=== PATIENT | male | born 1925 | race Caucasian/White ===

== ENCOUNTER 2016-11-08 16:34 | Emergency (ER) | payer MEDICARE, OTHER ==
[~2016-11-08] VITALS: Ht 180.3 cm; Wt 77.3 kg
[2016-11-08 16:48] VITALS: BP 141/70; PULSE 71; RESP 19; O2SAT 98
--- NOTE | 2016-11-08 16:49 | ED.REPORT ---
HPI-Chest Pain 40 and Over Date of Service Nov 08, 2016 ED Provider: Vel Alicia DO The patient is a 89 year old male w/ a hx of 2 bypasses who presents to the ED due to sudden onset atypical chest sensation. Pt specifically denies "chest pain " and describes that he just "feels bad all over." He went to the dentist last week and had a slightly elevated blood pressure. C/o warmth on his head. He was sitting when he began to experience symptoms. His confirms that his speech is normal and denies LOC, dizziness and any other symptoms. The pt requested go to the ER which he has never done before. He does not take medication for high blood pressure. He never had any chest pain. He never had any shortness of breath. Basically was a feeling of dysphoria. Perhaps presyncopal as well. Nursing Notes Stated Complaint: CHEST PAIN Chief Complaint: Chest Pain Nursing Notes Reviewed: Yes Allergies: Coded Allergies: No Known Allergies (Unverified , 11/08/16) General Time Seen by MD: 16:48 Chief Complaint Chest aching Hx Obtained From: Patient Arrived By: Walk-in Sudden in Onset?: Yes Onset Occurred: Just prior to arrival Symptom Duration: Since onset Past Medical History Past Medical History denies Past Surgical History 2 bypasses Smoking History Never Smoker Social History Other Social History: Good social support, , Local resident Review of Systems Review of Systems Note: atypical chest sensation Constitutional: Reports: Malaise Cardiovascular: Denies: Chest pain Neurologic: Denies: Change LOC, Dizziness Complete sys rev & neg: except as marked. Physical Exam Initial Vital Signs Vital Signs (First) Date Time Temp Pulse Resp B/P Pulse Ox O2 Delivery O2 Flow Rate FiO2 11/08/16 16:48 36.8 71 19 141/70 98 Room Air Initial VS: Reviewed Head / Eyes: Atraumatic, Normocephalic, PERRL ENT: Mucous membranes moist Skin: Warm, Dry General/Constitutional: Awake, Alert, No acute distress, Well appearing, Cooperative, Not toxic appearing moving all 4 extremities Respiratory / Chest: Atraumatic, Breath sounds NL, Breath sounds = bilat Cardiovascular: Heart rate NL, Regular rhythm, Heart sounds NL pitting edema bilateral LE Abdomen: Atraumatic, Soft, Non-tender Lower Extremity / Pelvis / MS: Inspection NL, Full range of motion skin graft on right knee healing well Neurologic: Oriented X3, Speech NL, No motor deficits, No sensory deficits, Reflexes equal bilat, Memory NL Interpretation & Diagnostics Interpretation & Diagnostics: ANGIOGRAPHY CT IMPRESSION: 1. No evidence of pulmonary embolism. 2. No consolidations or effusions. 3. Multiple sub-centimeters nodules with the largest measuring 5 mm. No priors are available for comparison. Recommend interval followup as below. 4. Multiple low attenuation hepatic foci, with the largest most consistent with simple cysts. The smaller are too small to definitively characterize. Fleischner Society criteria for lung nodule followup. Nodule size (mm)Low-risk patientHigh-risk patient<=4No follow-up needed.Follow-up at 12 months; if no change, no further follow-up.>7-1Infvsy-ws CT at 12 months; if no change, no further follow-up needed.Initial follow-up CT at 6-12 months, then 18-24 months if no change.>6-8Initial follow-up CT at 6-12 months, then 18-24 months if no change.Initial follow-up CT at 3-6 months, then 9-12 months and 24 months if no change.>8Follow-up CT at 3,9 and 24 months or PET and/or biopsySame as for low-risk patientsNon-solid (ground-glass) or partly solid nodules may require longer follow-up to exclude indolent adenocarcinoma. Dictated by: Raven Salmeron M.D. on 11/08/2016 at 19:40 Approved by: Raven Salmeron M.D. on 11/08/2016 at 19:46 Lab Results Interpretation Result Diagram: 11/08/16 1700 11/08/16 1700 Test 11/08/16 17:00 11/08/16 18:30 11/08/16 20:25 White Blood Count 5.6th/mm3 (3.8-10.1) Red Blood Count 4.22mil/mm3 (4.40-5.80) Hemoglobin 14.4g/dL (13.8-17.2) Hematocrit 41.4% (41.0-50.0) Mean Corpuscular Volume 98.1fL (81-100) Mean Corpuscular Hemoglobin 34.1pg (27.0-35.0) Mean Corpuscular Hemoglobin Concent 34.8% (32.0-37.0) Red Cell Distribution Width 13.2% (12.3-15.4) Platelet Count 115bil/L (150-400) Neutrophils (%) (Auto) 64.8% (40-74) Lymphocytes (%) (Auto) 17.5% (14-46) Monocytes (%) (Auto) 13.5% (4-12) Eosinophils (%) (Auto) 4.0% (0-5) Basophils (%) (Auto) 0.2% (0-3) D-Dimer 0.70mg/L FEU (<0.50) Sodium Level 137mEq/L (134-144) Potassium Level 4.4mEq/L (3.5-5.2) Chloride Level 99mEq/L (97-108) Carbon Dioxide Level 25mmol/L (18-29) Blood Urea Nitrogen 20mg/dL (8-27) Creatinine 0.78mg/dL (0.76-1.27) Estimat Glomerular Filtration Rate 100mL/min (>59) Glucose Level 111mg/dL (60-99) Calcium Level 9.8mg/dL (8.5-10.1) Magnesium Level 2.1mg/dL (1.6-2.6) Total Bilirubin 0.7mg/dL (0.0-1.2) Aspartate Amino Transf (AST/SGOT) 29U/L (0-50) Alanine Aminotransferase (ALT/SGPT) 24U/L (0-44) Alkaline Phosphatase 89U/L (25-160) Pro-B-Type Natriuretic Peptide 287.3pg/mL (0-486) Total Protein 7.1g/dL (6.4-8.4) Albumin 4.2g/dL (3.4-5.0) Urine Color Yellow (YELLOW) Urine Appearance Hazy (CLEAR,HAZY) Urine pH 8.0 (5.0-8.0) Urine Specific [place] 1.015 (1.003-1.035) Urine Protein Negativemg/dL (NEG,TRACE) Urine Glucose (UA) Negativemg/dL (NEGATIVE) Urine Ketones Negativemg/dL (NEGATIVE) Urine Occult Blood Negative (NEGATIVE) Urine Nitrite Negative (NEGATIVE) Urine Bilirubin Negative (NEGATIVE) Urine Urobilinogen Normalmg/dL (NORMAL) Urine Leukocyte Esterase Negative (NEGATIVE) Urine RBC 0-2/hpf (0-2) Urine WBC 0-5/hpf (0-5) Urine Epithelial Cells Occasional/hpf (NONE-MOD) Urine Crystals Amorphous phosphates Urine Bacteria None/hpf (NONE-FEW) Urine Hyaline Casts None/lpf (NONE) Urine Granular Casts None seen (NONE SEEN) Urine Waxy Casts None seen (NONE SEEN) Urine Red Blood Cell Casts None seen (NONE SEEN) Urine White Blood Cell Casts None seen (NONE SEEN) Urine Mucus None seen (None Seen) Urine Trichomonas None seen (NONE SEEN) Urine Yeast None (NONE SEEN) Urinalysis Comment None Troponin T 0.010ug/L (0.0-0.011) ECG Interpretation ECG Interpretation: RBBB prolonged [place] interval Time: 16:55 Interpreted by: ED physician Normal ECG Interpretation: Normal sinus rhythm (7) X-Ray Chest Interpretation Chest Xray Interpretation: IMPRESSION: Very minimal streaky bibasilar opacities, suspected to represent atelectasis. However, developing airspace disease such as pneumonia cannot be definitively excluded. Dictated by: Raven Salmeron M.D. on 11/08/2016 at 17:31 Approved by: Raven Salmeron M.D. on 11/08/2016 at 17:32 View: Portable Interpretation / Wet Read by: Interpret - Radiologist Re-Eval/Medical Decision Med Decision/Clinical Course Mr. Osorio has had a very reassuring workup. Pulmonary emboli has been ruled out. Serial cardiac enzymes are normal. His EKG shows a right bundle with normal ST segments. His laboratory work otherwise looks good. He was observed for roughly 4 hours. He was essentially asymptomatic and felt like he wanted to go home. I am not exactly sure what happened tonight. I am happy that he is not having an LA or pulmonary embolism. I think is perfectly safe for him to be at home and have close outpatient follow-up. I will have him call his doctor and finish photographer on Wednesday to set up follow-up as well. Time of Eval: 17:29 Re-Evaluation/Progress Note: Plan for bloodwork, chest x-ray and electolytes. Pt understands and agrees with plan. Counseled Regarding: Diagnosis, Lab results, Need for follow-up, When/why to return to ED Discharge & Departure Primary Impression: Near syncope Disposition: Home Discharge Condition All VS Reviewed: Yes Condition: Stable Patient Instructions: Chest Pain (ED), Syncope (GEN) Additional Instructions: I am not certain as to exactly what happened tonight. Your EKG does not show signs of heart injury. Your cardiac enzymes were normal. No blood clot was identified on the CAT scan. Your laboratory work was reassuring and normal. Your chest x-ray was reassuring as well. Your vital signs have been normal. I am glad you're feeling better. I would like you to call your doctor tomorrow to set up a follow-up for this week. Return to the emergency department if you have any problems or any new or worrisome symptoms. I would also like you to call your finish photographer for a follow-up as well. The CAT scan of the chest did show pulmonary nodules. Take a copy of the CAT scan report with you when you follow-up and make sure this stuff is all followed up on. Referrals: Patricio Bai MD (PCP) Shane Parham MD Attestation Portion of this note were transcribed by Luz Haider. I, Dr. Alicia, personally performed the history, physical exam, and medical decision-making: I reviewed and confirmed the accuracy for the information in the transcribed note. Signed by: shana Hair, 11/08/16 2200 copies to: Shane Parham MD, Todd P DO Nov 08, 2016 16:49 Luz Haider Nov 08, 2016 17:24
[2016-11-08 17:20] LABS: BASOPHILS % (AUTO) 0.2 % (0-3); MONOCYTES % (AUTO) 13.5 % (4-12); Mean Corpuscular Hemoglobin 34.1 pg (27.0-35.0); Mean Corpuscular Volume 98.1 fL (81-100); NEUTROPHILS % (AUTO) 64.8 % (40-74); Platelet Count 115 bil/L (150-400)
--- NOTE | 2016-11-08 17:33 | DRSVH ---
PROCEDURE: X-RAY CHEST ONE VIEW, PORTABLE ([id number]) INDICATIONS: CHEST PAIN TECHNIQUE: One view of the chest was acquired. COMPARISON: [facility], CR, CHEST 2VW, 12/04/2014, 11:22. None. FINDINGS: Surgical changes and devices: Sternal wires consistent with previous bypass procedure are noted. Lungs and pleura: Very minimal appearance of streaky bibasilar opacities. Mediastinum: Mediastinal contours appear normal. Heart size is normal. Bones and chest wall: No suspicious bony lesions. Overlying soft tissues appear unremarkable. IMPRESSION: Very minimal streaky bibasilar opacities, suspected to represent atelectasis. However, de veloping airspace disease such as pneumonia cannot be definitively excluded. Dictated by: Raven Salmeron M.D. on 11/08/2016 at 17:31 Approved by: Raven Salmeron M.D. on 11/08/2016 at 17:32
[2016-11-08 17:46] LABS: TROPONIN T < 0.010 ug/L (0.0-0.011)
[2016-11-08 17:53] LABS: Magnesium 2.1 mg/dL (1.6-2.6)
[2016-11-08 19:26] LABS: APPEARANCE,URINE HAZY (CLEAR,HAZY); COLOR,URINE YELLOW (YELLOW); OCCULT BLOOD,URINE NEGATIVE (NEGATIVE); UROBILINOGEN,URINE NORMAL (NORMAL)
--- NOTE | 2016-11-08 19:47 | DRSVH ---
PROCEDURE: CT ANGIO CHEST PULMONARY EMBOLISM ([id number]) INDICATIONS: near syncope, elevated ddimer TECHNIQUE: After the administration of intravenous contrast, 2 mm thick sections acquired from the pulmonary api monica to the posterior costophrenic angles. 3-dimensional maximum intensity projection (MIP) coronal a nd sagittal reformats were then acquired through the thorax. For radiation dose reduction, the follo wing was used: automated exposure control, adjustment of mA and/or kV according to patient size. COMPARISON: None. FINDINGS: Image quality: Excellent. Pulmonary arteries: Pulmonary arteries are normal in size, and demonstrate no intraluminal filling d efects to suggest central pulmonary embolism. Lungs and pleura: There is a 3 mm nodule in the right lower lobe on series 5 image 44, as well as ser ies 5 image 45. Posterior lateral right lower lobe calcified granuloma is present on series 5 image 4 6. Small areas of nodularity are noted along the left major fissure. There is a medial left lower lob e nodule measuring 5 mm on series 5 image 49. 3 mm left lower lobe nodules present on series 5 image 40 posteriorly. 2 mm left upper lobe nodule is present on series 5 image 29. Mediastinum: Heart size is normal, without pericardial effusion. No mediastinal or hilar adenopathy . Thoracic aorta is normal in caliber and enhancement. Esophagus is normal in caliber, without hiat al hernia. Bones and chest wall: No suspicious bony lesions. Ribs and thoracic spine appear intact throughout. Thyroid gland is unremarkable within visualized portions. No axillary or supraclavicular adenopath y. Abdomen: Calcifications are present within the liver and spleen, likely compliance representative dealer of prior gran ulomatous exposure. There is are several low attenuation foci within the liver, the largest measuring approximately 10 mm with Hounsfield units of 10. Otherwise, visualized upper abdominal solid organs appear normal in the early arterial phase of enhancement. IMPRESSION: 1. No evidence of pulmonary embolism. 2. No consolidations or effusions. 3. Multiple sub-centimeters nodules with the largest measuring 5 mm. No priors are available for comp arison. Recommend interval followup as below. 4. Multiple low attenuation hepatic foci, with the largest most consistent with simple cysts. The sma ller are too small to definitively characterize. Fleischner Society criteria for lung nodule followup. Nodule size (mm)Low-risk patientHigh-risk patient<=4No follow-up needed.Follow-up at 12 months; if no change, no further follow-up.>3-0Fakyal-zu CT at 12 months; if no change, no further follow-up neede d.Initial follow-up CT at 6-12 months, then 18-24 months if no change.>6-8Initial follow-up CT at 6- 12 months, then 18-24 months if no change.Initial follow-up CT at 3-6 months, then 9-12 months and 24 months if no change.>8Follow-up CT at 3,9 and 24 months or PET and/or biopsySame as for low-risk patientsNon-solid (ground-glass) or partly solid nodules may require longer follow-up to exclude indolent adenocarcinoma. Dictated by: Raven Salmeron M.D. on 11/08/2016 at 19:40 Approved by: Raven Salmeron M.D. on 11/08/2016 at 19:46
[2016-11-08 21:29] VITALS: BP 125/50; PULSE 63; RESP 16; O2SAT 97
== END 2016-11-08 21:43 | disposition home or self-care (01) ==
LOC: SED 16:34
DX: R55 Syncope and collapse (principal)
CPT/HCPCS: 36415; 71010; 71275; 80053; 81001; 83735; 83880; 84484; 85025; 85378; 93005; 99285; Q9967